=== PATIENT | female | born 1975 ===

== ENCOUNTER 2020-08-05 08:58 | Outpatient (CLI) | payer OTHER ==
--- NOTE | 2020-08-05 11:22 | MRI ---
MRI LEFT KNEE WITHOUT CONTRAST: HISTORY: Pain. COMPARISON: None. FINDINGS: MEDIAL MENISCUS: Intact. LATERAL MENISCUS: Mild free edge fraying lateral meniscal body without a displaced tear. The ACL is absent. PCL is intact. MCL and LCL are intact. EXTENSOR MECHANISM: Quadriceps tendon, patella, and patella tendon are intact. CARTILAGE: PATELLOFEMORAL COMPARTMENT: Along the interpolar region central patellar apex is a high-grade near f ull-thickness chondral defect measuring 3 x 2 mm with adjacent chondral delamination. MEDIAL COMPARTMENT: Intact. LATERAL COMPARTMENT: 30-40% chondral fraying throughout the weightbearing surface lateral femoral co ndyle and lateral tibial plateau as well as single full-thickness chondral fissure central weightbear ing surface lateral femoral condyle with low-grade subcortical reactive marrow change. SOFT TISSUES: The anterior intercondylar notch is an ossified body measuring up to 14 mm. Small ney nt effusion. Mild debris superolateral recess. No significant popliteal cyst. MUSCLES: Muscle signal and bulk is normal. IMPRESSION: 1. Corresponding to the radiographic finding of a calcified body within the intercondylar notch is a 14 mm calcified body which likely is sequelae of old anterior cruciate ligament tear which is abse nt. 2. Mild free edge fraying lateral meniscal without displaced tear. 3. Small joint effusion with superolateral recess debris and synovitis. 4. Focal near full-thickness chondral defect of the interpolar patellar apex measuring 3 x 2 mm with adjacent chondral delamination. 5. 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 POS: [facility]
== END 2020-08-05 08:59 | disposition home or self-care (01) ==
LOC: BICMRI 08:58
PROVIDERS: ATTEND Family Medicine
DX: M25.562 Pain in left knee (principal); M25.462 Effusion, left knee; M94.262 Chondromalacia, left knee